=== PATIENT | male | born 1960 | race Caucasian/White ===

== ENCOUNTER 2018-09-10 11:40 | Inpatient (IN) ==
[2018-09-10] MEDS ORDERED: fentaNYL Citrate Inj 100 MCG/2 ML Ampul ONE (11:52)
[2018-09-10 12:13] LABS: Baso # (Auto) 0.1 th/mm3 (0.0-0.2); Eos # (Auto) 0.1 th/mm3 (0.0-0.4); Eos % (Auto) 1.6 % (0.0-4.0); Hematocrit 40.4 % (39.0-51.0); Hemoglobin 14.3 gm/dL (13.0-17.0); Lymph # (Auto) 2.9 th/mm3 (1.0-4.8); Lymph % (Auto) 36.8 % (9.0-44.0); Mean Corpuscular HGB Conc 35.4 % (32.0-36.0); Mean Corpuscular Hemoglobin 30.1 pg (27.0-34.0); Mean Corpuscular Volume 85.1 fL (80.0-100.0); Mean Platelet Volume 7.4 fL (7.0-11.0); Mono # (Auto) 0.6 th/mm3 (0.0-0.9); Mono % (Auto) 8.3 % (0.0-8.0); Neut % (Auto) 52.3 % (16.0-70.0); Platelet Count 228 th/mm3 (150-450); Red Blood Count 4.75 mil/mm3 (4.50-5.90); Red Cell Distribution Width 13.8 % (11.6-17.2); White Blood Count 7.8 th/mm3 (4.0-11.0)
[2018-09-10 12:22] LABS: Activated Partial Thrombo Time 21.8 sec (23.4-31.7); Prothrombin Time 9.8 sec (9.8-11.6)
--- NOTE | 2018-09-10 12:22 | ED ---
HPI General Chief complaint: Trauma Alert Stated complaint: Trauma Alert Time Seen by Provider: 09/10/18 11:57 Source: patient, EMS and RN notes reviewed Mode of arrival: EMS History of Present Illness HPI narrative: Middle-aged male brought in by EMS following a fall at work. 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 He is unsure if he lost consciousness. He denies use of anticoagulants/ antiplatelets and thinks his last tetanus shot was within 5 years. He complains of nasal pain, neck and back pain, and left wrist pain. Related Data Home Medications Medication Instructions Recorded Confirmed No Known Home Medications 09/10/18 09/10/18 Previous Rx's Medication Instructions Recorded hydrocodone-acetaminophen 1 tab PO Q6HR PRN #12 tab 09/12/18 sennosides [Senna Lax] 17.2 mg PO Q12H PRN 5 Days tab 09/12/18 Allergies Allergy/AdvReac Type Severity Reaction Status Date / Time No Known Allergies Allergy Verified 09/10/18 12:42 Review of Systems ROS: all other systems reviewed are negative PMFSH History History Provided By: Patient Social History Social History Substance History: No History of Abuse Second Hand Smoke Exposure: No Smoking Status: Never smoker How Often Do You Have a Drink Containing Alcohol: Monthly or less Recent Travel in [facility] within the Last 8 Weeks: No Recent Out of Country Travel within the Last 8 Weeks: No Exam Const Other: Brought in on backboard with cervical collar in place [facility] Other: Tenderness to nasal bridge, small amount of epistaxis from right nare, no raccoon eyes or Lao's sign, no intraoral trauma Eyes General: appearance normal, both eyes and all related structures Pupils: PERRL Neck Other: (+) midline cervical spinal tenderness, cervical collar maintained due to mechanism Chest Chest: normal inspection of the chest Resp Effort & Inspection: normal respiratory effort Auscultation: no rhonchi and no wheezes Cardio Rate: regular rate Rhythm: regular rhythm GI Inspection: non-distended Palpation: soft and nontender Back/Spine/Pelvis Other: Mild midline mid-thoracic tenderness, no step-off Pelvis stable, leg lengths equal Skin General: no rashes or lesions noted Neuro General: alert, awake, oriented x3 and no focal motor deficits Other: GCS 15 Extrem Other: Angulated deformity of left wrist, strong radial pulse, capillary refill <3 seconds to all digits, sensation intact Course Consultations Consultation #1: Case discussed with Dr. Hairston (ortho), who would like post- reduction x-rays of his left wrist. If it is still significantly displaced, he will likely need surgery while in the hospital. If adequately reduced, can potentially follow up as outpatient but may still ultimately need surgical intervention. Time: 14:11 Initial Documented Vital Signs Pulse Oximetry 100 09/10/18 11:54 Last Documented Vital Signs Temperature 98.3 F 09/12/18 08:00 Pulse Rate 62 09/12/18 08:00 Respiratory Rate 16 09/12/18 08:00 Blood Pressure 133/76 09/12/18 08:00 Pulse Oximetry 96 09/12/18 08:00 Medical Decision Making MDM Narrative Medical decision making narrative: Assessment: Middle aged male presenting after a fall Plan: Trauma alert level 2 paged on arrival X-ray chest, pelvis, left wrist [place]-CT scan Pain control Left wrist splinted by cnc technician in trauma bay Addendum: Patient's cervical collar cleared by me after negative imaging, no focal deficits. His CT facial bones was read as possible jaw subluxation but he is able to hold a tongue depressor between his teeth on both sides with no malocclusion or weakness. He has continued pain from left wrist s/p reduction. Slight improvement in displacement noted on post-reduction x-rays but radius is still fairly impacted. Case discussed with Dr. Hairston of ortho, who would like the patient kept NPO after midnight for OR in AM. Patient understands and agrees with plan. Medical Screen Exam Complete: Yes Emergency Medical Condition: Yes Differential Diagnosis Differential Diagnosis: Differential diagnosis includes, but is not limited to: ICH, skull fracture, C spine injury, intra-torso trauma, wrist fracture Lab Data Result diagrams: 09/11/18 04:47 09/11/18 04:47 Lab Results 09/10/18 09/10/18 09/10/18 Range/Units 11:45 11:45 11:45 WBC 7.8 (4.0-11.0) th/mm3 RBC 4.75 (4.50-5.90) mil/mm3 Hgb 14.3 (13.0-17.0) gm/dL POC Hgb (Calc) 13.6 (13.0-17.0) g/dL Hct 40.4 (39.0-51.0) % POC Hct 40.0 (39-51.0) % MCV 85.1 (80.0-100.0) fL MCH 30.1 (27.0-34.0) pg MCHC 35.4 (32.0-36.0) % RDW 13.8 (11.6-17.2) % Plt Count 228 (150-450) th/mm3 MPV 7.4 (7.0-11.0) fL Neut % (Auto) 52.3 (16.0-70.0) % Lymph % (Auto) 36.8 (9.0-44.0) % [place] % (Auto) 8.3 H (0.0-8.0) % Eos % (Auto) 1.6 (0.0-4.0) % Baso % (Auto) 1.0 (0.0-2.0) % Neut # (Auto) 4.0 (1.8-7.7) th/mm3 Lymph # (Auto) 2.9 (1.0-4.8) th/mm3 [place] # (Auto) 0.6 (0.0-0.9) th/mm3 Eos # (Auto) 0.1 (0.0-0.4) th/mm3 Baso # (Auto) 0.1 (0.0-0.2) th/mm3 WBC Differential . Differential Comment Auto diff final PT 9.8 (9.8-11.6) sec INR 1.0 Ratio APTT 21.8 L (23.4-31.7) sec POC Sodium 142 (137-144) mmol/L Sodium (136-145) meq/L POC Potassium 3.0 L (3.6-5.0) mmol/L Potassium (3.5-5.1) meq/L POC Chloride 106 (102-111) mmol/L Chloride (98-107) meq/L Carbon Dioxide (21.0-32.0) meq/L Anion Gap (5-15) meq/L POC BUN 10 (5-21) mg/dL BUN (7-18) mg/dL Creatinine (0.60-1.30) mg/dL POC Creatinine 0.8 (0.6-1.3) mg/dL Estimated GFR (>89) mL/min POC Glucose 121 H (68-110) mg/dL Random Glucose (74-106) mg/dL Calcium (8.5-10.1) mg/dL Urine Opiates Screen (Neg) Ur Barbiturates Screen (Neg) Ur Amphetamines Screen (Neg) U Benzodiazepines Scrn (Neg) Urine Cocaine Screen (Neg) U Cannabinoids Screen (Neg) Serum Alcohol (0-5) mg/dL Blood Type Antibody Screen 09/10/18 09/10/18 09/11/18 Range/Units 11:45 11:45 00:20 WBC (4.0-11.0) th/mm3 RBC (4.50-5.90) mil/mm3 Hgb (13.0-17.0) gm/dL POC Hgb (Calc) (13.0-17.0) g/dL Hct (39.0-51.0) % POC Hct (39-51.0) % MCV (80.0-100.0) fL MCH (27.0-34.0) pg MCHC (32.0-36.0) % RDW (11.6-17.2) % Plt Count (150-450) th/mm3 MPV (7.0-11.0) fL Neut % (Auto) (16.0-70.0) % Lymph % (Auto) (9.0-44.0) % [place] % (Auto) (0.0-8.0) % Eos % (Auto) (0.0-4.0) % Baso % (Auto) (0.0-2.0) % Neut # (Auto) (1.8-7.7) th/mm3 Lymph # (Auto) (1.0-4.8) th/mm3 [place] # (Auto) (0.0-0.9) th/mm3 Eos # (Auto) (0.0-0.4) th/mm3 Baso # (Auto) (0.0-0.2) th/mm3 WBC Differential Differential Comment PT (9.8-11.6) sec INR Ratio APTT (23.4-31.7) sec POC Sodium (137-144) mmol/L Sodium (136-145) meq/L POC Potassium (3.6-5.0) mmol/L Potassium (3.5-5.1) meq/L POC Chloride (102-111) mmol/L Chloride (98-107) meq/L Carbon Dioxide (21.0-32.0) meq/L Anion Gap (5-15) meq/L POC BUN (5-21) mg/dL BUN (7-18) mg/dL Creatinine (0.60-1.30) mg/dL POC Creatinine (0.6-1.3) mg/dL Estimated GFR (>89) mL/min POC Glucose (68-110) mg/dL Random Glucose (74-106) mg/dL Calcium (8.5-10.1) mg/dL Urine Opiates Screen Pos H (Neg) Ur Barbiturates Screen Neg (Neg) Ur Amphetamines Screen Neg (Neg) U Benzodiazepines Scrn Neg (Neg) Urine Cocaine Screen Neg (Neg) U Cannabinoids Screen Neg (Neg) Serum Alcohol Less than 3 (0-5) mg/dL Blood Type A Positive Antibody Screen Negative 09/11/18 09/11/18 09/11/18 Range/Units 04:47 04:47 04:47 WBC 8.7 (4.0-11.0) th/mm3 RBC 4.59 (4.50-5.90) mil/mm3 Hgb 13.7 (13.0-17.0) gm/dL POC Hgb (Calc) (13.0-17.0) g/dL Hct 39.0 (39.0-51.0) % POC Hct (39-51.0) % MCV 85.0 (80.0-100.0) fL MCH 29.8 (27.0-34.0) pg MCHC 35.1 (32.0-36.0) % RDW 13.7 (11.6-17.2) % Plt Count 211 (150-450) th/mm3 MPV 7.4 (7.0-11.0) fL Neut % (Auto) 69.2 (16.0-70.0) % Lymph % (Auto) 19.2 (9.0-44.0) % [place] % (Auto) 8.7 H (0.0-8.0) % Eos % (Auto) 2.2 (0.0-4.0) % Baso % (Auto) 0.7 (0.0-2.0) % Neut # (Auto) 6.0 (1.8-7.7) th/mm3 Lymph # (Auto) 1.7 (1.0-4.8) th/mm3 [place] # (Auto) 0.8 (0.0-0.9) th/mm3 Eos # (Auto) 0.2 (0.0-0.4) th/mm3 Baso # (Auto) 0.1 (0.0-0.2) th/mm3 WBC Differential . Differential Comment Auto diff final PT 10.0 (9.8-11.6) sec INR 1.0 Ratio APTT (23.4-31.7) sec POC Sodium (137-144) mmol/L Sodium 140 (136-145) meq/L POC Potassium (3.6-5.0) mmol/L Potassium 3.8 (3.5-5.1) meq/L POC Chloride (102-111) mmol/L Chloride 107 (98-107) meq/L Carbon Dioxide 25.4 (21.0-32.0) meq/L Anion Gap 8 (5-15) meq/L POC BUN (5-21) mg/dL BUN 10 (7-18) mg/dL Creatinine 0.79 (0.60-1.30) mg/dL POC Creatinine (0.6-1.3) mg/dL Estimated GFR 84 L (>89) mL/min POC Glucose (68-110) mg/dL Random Glucose 94 (74-106) mg/dL Calcium 8.3 L (8.5-10.1) mg/dL Urine Opiates Screen (Neg) Ur Barbiturates Screen (Neg) Ur Amphetamines Screen (Neg) U Benzodiazepines Scrn (Neg) Urine Cocaine Screen (Neg) U Cannabinoids Screen (Neg) Serum Alcohol (0-5) mg/dL Blood Type Antibody Screen Imaging Data Radiologist's impression: Wrist X-Ray 09/10/18 00:00 CONCLUSION: Comminuted distal radial fracture with dorsal dislocation of the carpus. Chest X-Ray 09/10/18 11:42 CONCLUSION: Artifact from backboard otherwise negative Pelvis X-Ray 09/10/18 11:42 CONCLUSION: The bony pelvic ring is grossly intact. Abdomen/Pelvis CT 09/10/18 11:50 CONCLUSION: 1. No acute traumatic CT abnormality in the abdomen or pelvis. 2. Mildly decreased hepatic attenuation likely reflecting mild hepatic steatosis. 3. Small fat-containing left inguinal hernia. Cervical Spine CT 09/10/18 11:50 CONCLUSION: 1. Negative for fracture Chest CT 09/10/18 11:50 CONCLUSION: 1. Mild groundglass opacities in the lower lobes posteriorly likely reflecting atelectasis. 2. Otherwise, no CT evidence for acute traumatic injury in the chest. Face CT 09/10/18 11:50 CONCLUSION: 1. Mandible appears to be subluxed anteriorly the mouth partially open. I don' t see a fracture to account for this. Clinical correlation suggested. Head CT 09/10/18 11:50 CONCLUSION: 1. Negative for acute process Lumbar Spine CT 09/10/18 11:50 CONCLUSION: 1. Negative for acute compression fracture. MRI would be more sensitive for such. 2. Degenerative disc disease worse at L4-5 without significant spinal stenosis. Thoracic Spine CT 09/10/18 11:50 CONCLUSION: 1. Negative for acute compression fracture, MRI be more sensitive for such. 2. No significant spinal stenosis. Wrist X-Ray 09/10/18 14:10 CONCLUSION: 1. Comminuted, impaction type fracture of the distal radial metaphysis with probable intra-articular extension. 2. There may be partial reduction of the fracture but there is still some dorsal angulation of the main fracture fragments. Wrist X-Ray 09/11/18 00:00 CONCLUSION: Intraoperative images. Chest X-Ray 09/12/18 00:00 CONCLUSION: Under aerated otherwise negative. I do not see a source of fever. Discharge Plan Discharge Disposition Patient Disposition: ED Admit(ED Internal Use Only) Discharge Condition Condition: Good Discharge Order Discharge Orders: Discharge Order (Routine); Ordered 09/12/18 Ordered By: Zunilda Bravo Orthopedic Clear for Discharge (Routine); Ordered 09/11/18 Ordered By: Vikki Hairston ED Use Only Admit Order (Routine); Ordered 09/10/18 Ordered By: Anita Zhang Discharge Details Anticipated Discharge Date: 09/12/18 Diagnosis: Fall from scaffold, Distal radius fracture, left Physicians Team ED Provider: Yamilet Beck Primary Care Provider: Primary Care Physici,No Attending Provider: Ofelia Rees Other Providers: Vikki Hairston Status ED Status: Left Department Discharge Information Discharge Date/Time: 09/10/18 17:30
--- NOTE | 2018-09-10 12:27 | CT ---
EXAM DATE: 09/10/2018 12:12 PM EST AGE/SEX: 89 years / Male INDICATIONS: Trauma fall from ladder. CLINICAL DATA: This is the patient's initial encounter. Patient reports that signs and symptoms have been present for 1 day and indicates a pain score of 6/10. MEDICAL/SURGICAL HISTORY: None. None. RADIATION DOSE: 56.70 CTDI (mGy) COMPARISON: No prior exams available for comparison. TECHNIQUE: CT of the head without contrast. Using automated exposure control and adjustment of the mA and/or kV according to patient size, radiation dose was kept as low as reasonably achievable to ob tain optimal diagnostic quality images. DICOM format image data is available electronically for revi ew and comparison. FINDINGS: Cerebrum: The ventricles are normal for age. No evidence of midline shift, mass lesion, hemorrhage or acute infarction. No extraaxial fluid collections are seen. Posterior Fossa: The cerebellum and brainstem are intact. The 4th ventricle is midline. The cerebe llopontine angle is unremarkable. Extracranial: The visualized portion of the orbits is intact. Skull: The calvaria is intact. No evidence of skull fracture. Moderate chronic sinus disease CONCLUSION: 1. Negative for acute process Electronically signed by: Jani Toney MD Board Certified Radiologist 09/10/2018 12:26 PM EST
--- NOTE | 2018-09-10 12:49 | XR ---
EXAM DATE: 09/10/2018 12:04 PM EST AGE/SEX: 89 years / Male INDICATIONS: Trauma alert, fall. Pain in chest, pelvis and left hip. CLINICAL DATA: This is the patient's initial encounter. Patient reports that signs and symptoms have been present for 1 day and indicates a pain score of Nonresponsive. MEDICAL/SURGICAL HISTORY: Non-responsive. Non-responsive. COMPARISON: No prior exams available for comparison. FINDINGS: Artifact from backboard. A single AP view of the chest demonstrates the lungs to be symmetrically aer ated without evidence of mass, infiltrate or effusion. The cardiomediastinal contours are unremarkab le. Osseous structures are intact. CONCLUSION: Artifact from backboard otherwise negative Electronically signed by: Jani Toney MD Board Certified Radiologist 09/10/2018 12:48 PM EST
--- NOTE | 2018-09-10 12:49 | CT ---
EXAM DATE: 09/10/2018 12:26 PM EST AGE/SEX: 89 years / Male INDICATIONS: Trauma fell from a ladder CLINICAL DATA: This is the patient's initial encounter. Patient reports that signs and symptoms have been present for 1 day and indicates a pain score of 6/10. MEDICAL/SURGICAL HISTORY: None. None. RADIATION DOSE: 21.30 CTDI (mGy) COMPARISON: No prior exams available for comparison. TECHNIQUE: Contiguous axial images were obtained using helical multirow detector technique. The vol umetric data was post-processed with multiplanar reconstruction in oblique axial, sagittal, and coron al planes. Using automated exposure control and adjustment of the mA and/or kV according to patient s ize, radiation dose was kept as low as reasonably achievable to obtain optimal diagnostic quality phillip ges. DICOM format image data is available electronically for review and comparison. FINDINGS: Vertebrae: Normal vertebral body height. Anterior osteophytosis is seen at C3-C4 Alignment: Normal. No subluxation. C2-3: The bony spinal canal is normal in size. No evidence of disc bulge or herniation. The neural foramina are bilaterally patent. C3-4: The bony spinal canal is normal in size. No evidence of disc bulge or herniation. The neural foramina are bilaterally patent. C4-5: The bony spinal canal is normal in size. No evidence of disc bulge or herniation. The neural foramina are bilaterally patent. C5-6: The bony spinal canal is normal in size. No evidence of disc bulge or herniation. The neural foramina are bilaterally patent. C6-7: The bony spinal canal is normal in size. No evidence of disc bulge or herniation. The neural foramina are bilaterally patent. C7-T1: The bony spinal canal is normal in size. No evidence of disc bulge or herniation. The neura l foramina are bilaterally patent. CONCLUSION: 1. Negative for fracture Electronically signed by: Jani Toney MD Board Certified Radiologist 09/10/2018 12:47 PM EST
--- NOTE | 2018-09-10 13:06 | CT ---
EXAM DATE: 09/10/2018 12:36 PM EST AGE/SEX: 89 years / Male INDICATIONS: Trauma fall from a ladder. CLINICAL DATA: This is the patient's initial encounter. Patient reports that signs and symptoms have been present for 1 day and indicates a pain score of 6/10. MEDICAL/SURGICAL HISTORY: None. None. RADIATION DOSE: 64.19 CTDI (mGy) COMPARISON: No prior exams available for comparison. TECHNIQUE: Contiguous images in the axial and coronal planes were obtained using helical multirow de tector technique. Using automated exposure control and adjustment of the mA and/or kV according to p atient size, radiation dose was kept as low as reasonably achievable to obtain optimal diagnostic antionette lity images. DICOM format image data is available electronically for review and comparison. FINDINGS: The mandible appears to be subluxed anteriorly with the mouth partially open. I don't see a fracture to account for this. Orbits: The orbital and infraorbital osseous structures are intact. The retroconal structures have a normal configuration. No radiopaque foreign bodies are seen. Nasal Bone: The nasal bone and maxillary spine are intact. Zygomatic Arches: Symmetric without evidence of fracture. Sinuses: Moderate chronic sinus disease including sphenoid. Nasal Cavity: The nasal septum is intact and midline. The lacrimal ducts are intact. Soft Tissues: No radiopaque foreign bodies seen. No soft-tissue swelling is seen. Intracranial: No intracranial air seen. Cribriform Plate: Grossly intact. CONCLUSION: 1. Mandible appears to be subluxed anteriorly the mouth partially open. I don't see a fracture to ac count for this. Clinical correlation suggested. Electronically signed by: Jani Toney MD Board Certified Radiologist 09/10/2018 1:05 PM EST
--- NOTE | 2018-09-10 13:10 | CT ---
EXAM DATE: 09/10/2018 12:40 PM EST AGE/SEX: 89 years / Male INDICATIONS: Trauma fall from a ladder. CLINICAL DATA: This is the patient's initial encounter. Patient reports that signs and symptoms have been present for 1 day and indicates a pain score of 6/10. MEDICAL/SURGICAL HISTORY: None. None. RADIATION DOSE: . CTDI (mGy) ; Combined studies COMPARISON: . TECHNIQUE: Contiguous axial images were acquired with a multirow detector CT scanner after intraveno us administration of 92 ml Omnipaque 350 (iohexol) nonionic water-soluble contrast as a cumulative d ose for multiple exams. Multiplanar reconstructions in the sagittal and coronal plane were also perf ormed. Using automated exposure control and adjustment of the mA and/or kV according to patient size, radiation dose was kept as low as reasonably achievable to obtain optimal diagnostic quality images. DICOM format image data is available electronically for review and comparison. FINDINGS: Vertebrae: Normal vertebral body height. Alignment: Normal. No subluxation. Post Contrast: No abnormal areas of enhancement are seen in the cord, dural or paraspinal regions. T12-L1: The thecal sac has a normal diameter. No evidence of disc bulge or protrusion. The neural foramina are patent bilaterally. L1-L2: Mild disc bulging evident. Minimal degenerative changes in the facets. Mild neural foraminal encroachment. L2-L3: Mild generalized disc bulging present with minimal bilateral neural foraminal encroachment wo rse on the right. Mild degenerative changes in the facets. Mild disc bulging evident without signific ant spinal stenosis. Neural foramen are adequate. Mild facet degenerative changes. L3-L4: Mild disc bulging evident without significant spinal stenosis. Neural foramen are adequate. M ild facet degenerative changes L4-L5: Mild disc bulging evident eccentric to the left with minimal bilateral neural foraminal encro achment. Mild degenerative changes in the facets. L5-S1: Mild disc bulging evident without significant spinal stenosis. Neural foramen are adequate. Mild degenerative changes in both SI joints. CONCLUSION: 1. Negative for acute compression fracture. MRI would be more sensitive for such. 2. Degenerative disc disease worse at L4-5 without significant spinal stenosis. Electronically signed by: Jani Toney MD Board Certified Radiologist 09/10/2018 1:09 PM EST
--- NOTE | 2018-09-10 13:12 | CT ---
EXAM DATE: 09/10/2018 1:01 PM EST AGE/SEX: 89 years / Male INDICATIONS: Trauma fall from a ladder. CLINICAL DATA: This is the patient's initial encounter. Patient reports that signs and symptoms have been present for 1 day and indicates a pain score of 6/10. MEDICAL/SURGICAL HISTORY: None. None. RADIATION DOSE: . CTDI (mGy) ; Reconstructed from previous dataset, no dose COMPARISON: [facility] – [place], [place] CERVICAL SPINE W/O CONTRAST, 09/10/2018. . TECHNIQUE: Contiguous axial images were acquired using a multirow detector CT scanner after intraven ous administration of 92 ml Omnipaque 350 (iohexol) nonionic water-soluble contrast as a cumulative dose for multiple exams. Multiplanar reconstruction in the sagittal and coronal planes was performe d. Using automated exposure control and adjustment of the mA and/or kV according to patient size, ra diation dose was kept as low as reasonably achievable to obtain optimal diagnostic quality images. D ICOM format image data is available electronically for review and comparison. FINDINGS: Vertebrae: Normal vertebral body height. There is no evidence for vertebral compression. Moderate an d calcified ptosis mid thoracic spine. Alignment: Normal. No subluxation. Post Contrast: No abnormal areas of enhancement are seen in the cord, dural or paraspinal regions. T1 - T2: Normal. T2 - T3: The thecal sac has a normal diameter. No evidence of disc bulge or protrusion. T3 - T4: The thecal sac has a normal diameter. No evidence of disc bulge or protrusion. T4 - T5: The thecal sac has a normal diameter. No evidence of disc bulge or protrusion. T5 - T6: The thecal sac has a normal diameter. No evidence of disc bulge or protrusion. T6 - T7: The thecal sac has a normal diameter. No evidence of disc bulge or protrusion. T7 - T8: The thecal sac has a normal diameter. No evidence of disc bulge or protrusion. T8 - T9: The thecal sac has a normal diameter. No evidence of disc bulge or protrusion. T9 - T10: The thecal sac has a normal diameter. No evidence of disc bulge or protrusion. T10 - T11: The thecal sac has a normal diameter. No evidence of disc bulge or protrusion. T11 - T12: The thecal sac has a normal diameter. No evidence of disc bulge or protrusion. T12 - L1: The thecal sac has a normal diameter. No evidence of disc bulge or protrusion. CONCLUSION: 1. Negative for acute compression fracture, MRI be more sensitive for such. 2. No significant spinal stenosis. Electronically signed by: Jani Toney MD Board Certified Radiologist 09/10/2018 1:11 PM EST
--- NOTE | 2018-09-10 13:23 | XR ---
EXAM DATE: 09/10/2018 12:06 PM EST AGE/SEX: 89 years / Male INDICATIONS: Trauma alert, fall. Pain in chest, pelvis and left wrist. CLINICAL DATA: This is the patient's initial encounter. Patient reports that signs and symptoms have been present for 1 day and indicates a pain score of Nonresponsive. MEDICAL/SURGICAL HISTORY: . . COMPARISON: No prior exams available for comparison. FINDINGS: Frontal view of the pelvis is performed on a trauma backboard. The bony pelvic ring is grossly intact . The arcuate lines of the sacrum or symmetric. The left hip is in external rotation with superimposi tion of the intertrochanteric region and femoral neck. No radiopaque foreign bodies. CONCLUSION: The bony pelvic ring is grossly intact. Electronically signed by: Gabo Machuca MD Board Certified Radiologist 09/10/2018 1:22 PM EST
--- NOTE | 2018-09-10 13:34 | XR ---
EXAM DATE: 09/10/2018 12:09 PM EST AGE/SEX: 89 years / Male INDICATIONS: Trauma alert, fall. Pain in chest, pelvis, and left wrist. CLINICAL DATA: This is the patient's initial encounter. Patient reports that signs and symptoms have been present for 1 day and indicates a pain score of Nonresponsive. MEDICAL/SURGICAL HISTORY: None. None. COMPARISON: No prior exams available for comparison. FINDINGS: There is a moderately comminuted fracture of the distal radius with posterior displacement and angula tion of the carpus with respect to the shaft of the radius. The distal ulna appears intact. There are several displaced bony fragments posterior and medial to the distal radius. The carpus appears gross ly intact. There is diffuse mild soft tissue swelling; no radiopaque foreign bodies. CONCLUSION: Comminuted distal radial fracture with dorsal dislocation of the carpus. Electronically signed by: Gabo Machuca MD Board Certified Radiologist 09/10/2018 1:33 PM EST
--- NOTE | 2018-09-10 13:56 | CT ---
EXAM DATE: 09/10/2018 12:34 PM EST AGE/SEX: 89 years / Male INDICATIONS: Trauma fall from a ladder. CLINICAL DATA: This is the patient's initial encounter. Patient reports that signs and symptoms have been present for 1 day and indicates a pain score of 6/10. MEDICAL/SURGICAL HISTORY: None. None. RADIATION DOSE: 14.43 CTDI (mGy) ; Combined studies COMPARISON: [facility], CHEST 1V SINGLE AP, 09/10/2018. . TECHNIQUE: Multiple contiguous axial images were obtained through the chest during bolus infusion of 92 ml Omnipaque 350 (iohexol) nonionic water-soluble contrast as a cumulative dose for multiple exa ms. Images were obtained in suspended respiration using multiple row detector helical technique. U sing automated exposure control and adjustment of the mA and/or kV according to patient size, radiati on dose was kept as low as reasonably achievable to obtain optimal diagnostic quality images. DICOM format image data is available electronically for review and comparison. FINDINGS: Lung: Mild groundglass opacities in the posterior lower lobes bilaterally. Pleura: No effusion, significant pleural thickening or pneumothorax. Mediastinum: Heart is unremarkable. No significant pericardial effusion. No significant mediastinal hematoma. Osseous Structures: Osseous structures are intact without acute bony fracture. Soft Tissues: Soft tissues are unremarkable. No significant axillary adenopathy. Other: Visulaized upper abdomen is unremarkable. CONCLUSION: 1. Mild groundglass opacities in the lower lobes posteriorly likely reflecting atelectasis. 2. Otherwise, no CT evidence for acute traumatic injury in the chest. Electronically signed by: Alessio Pennington MD Board Certified Radiologist 09/10/2018 1:55 PM EST
--- NOTE | 2018-09-10 13:59 | CT ---
EXAM DATE: 09/10/2018 12:31 PM EST AGE/SEX: 89 years / Male INDICATIONS: Trauma fell from a ladder. CLINICAL DATA: This is the patient's initial encounter. Patient reports that signs and symptoms have been present for 1 day and indicates a pain score of 6/10. MEDICAL/SURGICAL HISTORY: None. None. ORAL CONTRAST: No oral contrast ingested. RADIATION DOSE: 14.43 CTDI (mGy) ; Combined studies COMPARISON: [facility], PELVIS AP 1V, 09/10/2018. . TECHNIQUE: Multiple contiguous axial images were obtained through the abdomen and pelvis following b olus infusion of 92 ml Omnipaque 350 (iohexol) nonionic water-soluble contrast as a cumulative dose for multiple exams. No oral contrast ingested. Using automated exposure control and adjustment of t he mA and/or kV according to patient size, radiation dose was kept as low as reasonably achievable to obtain optimal diagnostic quality images. DICOM format image data is available electronically for r eview and comparison. FINDINGS: LIVER: Mild diffusely decreased hepatic attenuation without focal defect or intrahepatic ductal dila tation. SPLEEN: Homogeneous density without enlargement. PANCREAS: Unremarkable without mass or calcification. KIDNEYS: Kidneys demonstrate symmetrical enhancement and are symmetrical in size without evidence fo r radiopaque renal calculi or hydronephrosis. ADRENAL GLANDS: Unremarkable. AORTA: Aydee-aneurysmal. BOWEL/MESENTERY: The bowel loops are grossly unremarkable. The cecum and sigmoid colon have a alejandro l configuration. No pneumatosis or free air. No free fluid or drainable fluid collections. ABDOMINAL WALL: Small fat-containing left inguinal hernia. RETROPERITONEUM: No evidence of adenopathy in the retrocrural, para-aortic, or deep pelvic regions. BLADDER: Contours are smooth. REPRODUCTIVE: No abnormal masses or calcifications seen. BONY STRUCTURES: Osseous structures appear intact without acute fracture. Mild degenerative spondylo sis of the lower lumbar spine. CONCLUSION: 1. No acute traumatic CT abnormality in the abdomen or pelvis. 2. Mildly decreased hepatic attenuation likely reflecting mild hepatic steatosis. 3. Small fat-containing left inguinal hernia. Electronically signed by: Alessio Pennington MD Board Certified Radiologist 09/10/2018 1:57 PM EST
[2018-09-10] MEDS ORDERED: Morphine Inj 4 MG/ML Vial IV.PUSH ONE (14:55)
--- NOTE | 2018-09-10 15:28 | XR ---
EXAM DATE: 09/10/2018 2:53 PM EST AGE/SEX: 89 years / Male INDICATIONS: Post reduction. Patient fell from ladder. CLINICAL DATA: This is the patient's subsequent encounter. Patient reports that signs and symptoms h ave been present for 1 day and indicates a pain score of 10/10. MEDICAL/SURGICAL HISTORY: None. None. COMPARISON: [facility] [place], WRIST LEFT 1V, 09/10/2018. . FINDINGS: There appears to be a comminuted impaction type fracture of the distal radial metaphysis with some do rsal angulation of the distal fragment. There is almost certainly intra-articular extension. There is partial reduction of the fracture when compared to the prior. Anatomic detail is limited by overlyin g splint material CONCLUSION: 1. Comminuted, impaction type fracture of the distal radial metaphysis with probable intra-articular extension. 2. There may be partial reduction of the fracture but there is still some dorsal angulation of the m ain fracture fragments. Electronically signed by: Gerald Obrien MD Board Certified Radiologist 09/10/2018 3:27 PM EST
--- NOTE | 2018-09-10 16:25 | P.HPFP ---
History of Present Illness Primary Care Physician: No Primary Care Physician History of Present Illness: This patient is a 58-year-old Pakistani-speaking male who presented to the ED as a trauma after a witnessed fall. 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 Patient reports falling directly onto his left arm. At the time patient felt excruciating pain. He denies any lightheadedness , dizziness, shaking-like behavior, chest pain or shortness of breath prior to falling. Patient denies any loss of consciousness or hitting his head after falling. 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 Patient reports that he has had one prior fall over 10 years ago that resulted no injury. Since getting to the ED patient reports increased numbness and lack of sensation in the arm. He also reports a decreased movement and ability to close his hand. Of note: Had a dental implant infected 2 weeks and was prescribed oral amox and finished his course. 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 FMHx: None Allergies: None Social: Originally from [place], lives with his of 25 years. Has 3 children ages 24 ,20, and 16 all in good health. 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 Smoked cigarettes for a month and quit in 1973. Drinks 3 drinks only on weekends and not everyone weekend. No drugs. Code: Full PCP: Has in [place] but does not remember name. - Diagnosis (1) Distal radius fracture, left (2) Fall from scaffold (3) Hypokalemia (4) Nutrition, metabolism, and development symptoms Inpatient Certification: I certify that the inpatient services were ordered in accordance with Medicare regulations governing the order. This includes certification that hospital inpatient services are reasonable and necessary and in the case of services not specified as inpatient-only under 42 CFR 419.22(n), that they are appropriately provided as inpatient services in accordance to with the 2-midnight benchmark under 43 CFR 412.3(e) Review of Systems Constitutional: Denies chills, Denies fever(s), Denies headache(s), Denies dizziness, Eyes: Denies change in vision, Denies double vision, Denies blurry vision Cardiovascular: Denies chest pain, Denies fast heart rate, Denies rapid, pounding, or irregular heartbeat Respiratory: Denies shortness of breath or wheezing Gastrointestinal: Denies abdominal pain, Denies constipation, Denies loose stools, Denies nausea, Denies vomiting Genitourinary: Denies difficulty urinating, Denies painful urination, Denies urinary frequency, Denies blood in urine PMFSH - History History Provided By: Patient - Medical History Medical History: Medical History (Last Updated 09/10/18 @ 12:30 by Eloisa Mtz RN) Seizure disorder - Tobacco History Second Hand Smoke Exposure: No Smoking Status: Never smoker - Alcohol History How Often Do You Have a Drink Containing Alcohol: Monthly or less - Substance Use History Substance History: No History of Abuse - Travel History Recent Travel in the [place] Within the Last 8 Weeks: No Recent Travel Out of the Country Within the Last 8 Weeks: No - Immunization History Tetanus Immunization: Unsure Medications and Allergies Allergies Allergy/AdvReac Type Severity Reaction Status Date / Time No Known Allergies Allergy Verified 09/10/18 12:42 Home Medications Medication Instructions Recorded Confirmed Type No Known Home Medications 09/10/18 09/10/18 History Exam Vital signs: Vital Signs 09/10/18 11:54 09/10/18 12:25 09/10/18 14:13 Pulse Rate 62 60 Respiratory Rate 20 20 Blood Pressure 201/96 H 185/87 H Pulse Oximetry 100 99 97 09/10/18 16:02 Pulse Rate 60 Respiratory Rate 18 Blood Pressure 196/94 H Pulse Oximetry 97 Intake & Output 09/09/18 09/10/18 09/10/18 18:59 06:59 18:59 Weight 70.307 kg Narrative: GENERAL: Well-nourished, well-developed patient with dried blood on face. No acute distress. EYES: No scleral icterus. No injection or drainage. PERRLA. EOMI. HENT: Normocephalic. Atraumatic. MMM. OP Benign. External abrasions on right and left cheek as well as over her philtrum. Patient has approximately 2 cm linear laceration on the inside of his top lip. No obvious external lacerations or facial swelling. NECK: Supple, trachea midline. No JVD or lymphadenopathy. CARDIOVASCULAR: Regular rate and rhythm without obvious murmurs, gallops, or rubs. RESPIRATORY: Breath sounds equal bilaterally. No accessory muscle use. CTAB. GASTROINTESTINAL: Abdomen soft, non-tender, nondistended. BS WNL. MUSCULOSKELETAL: Patient has left arm in bandage, fingers well perfused and warm to the touch. Capillary refill less than 2 seconds. No cyanosis or edema. Strength grossly WNL. BACK: Nontender without obvious deformity. No CVA tenderness. NEURO/PSYCH: Afocal. Awake, alert, and oriented x3. Patient has decreased sensation over left hand. Stating that he cannot feel when the I was examining his hand. Blasting Miner strength 0/5 in left hand. Patient able to abduct shoulder past 90 degrees. Results - Labs Result diagrams: 09/10/18 11:45 Abnormal lab results 09/10/18 09/10/18 09/10/18 Range/Units 11:45 11:45 11:45 [place] % (Auto) 8.3 H (0.0-8.0) % APTT 21.8 L (23.4-31.7) sec POC Potassium 3.0 L (3.6-5.0) mmol/L POC Glucose 121 H (68-110) mg/dL Short CBC 09/10/18 Range/Units 11:45 WBC 7.8 (4.0-11.0) th/mm3 Hgb 14.3 (13.0-17.0) gm/dL Hct 40.4 (39.0-51.0) % Plt Count 228 (150-450) th/mm3 - Imaging Impressions Wrist X-Ray 09/10/18 00:00 CONCLUSION: Comminuted distal radial fracture with dorsal dislocation of the carpus. Chest X-Ray 09/10/18 11:42 CONCLUSION: Artifact from backboard otherwise negative Pelvis X-Ray 09/10/18 11:42 CONCLUSION: The bony pelvic ring is grossly intact. Abdomen/Pelvis CT 09/10/18 11:50 CONCLUSION: 1. No acute traumatic CT abnormality in the abdomen or pelvis. 2. Mildly decreased hepatic attenuation likely reflecting mild hepatic steatosis. 3. Small fat-containing left inguinal hernia. Cervical Spine CT 09/10/18 11:50 CONCLUSION: 1. Negative for fracture Chest CT 09/10/18 11:50 CONCLUSION: 1. Mild groundglass opacities in the lower lobes posteriorly likely reflecting atelectasis. 2. Otherwise, no CT evidence for acute traumatic injury in the chest. Face CT 09/10/18 11:50 CONCLUSION: 1. Mandible appears to be subluxed anteriorly the mouth partially open. I don' t see a fracture to account for this. Clinical correlation suggested. Head CT 09/10/18 11:50 CONCLUSION: 1. Negative for acute process Lumbar Spine CT 09/10/18 11:50 CONCLUSION: 1. Negative for acute compression fracture. MRI would be more sensitive for such. 2. Degenerative disc disease worse at L4-5 without significant spinal stenosis. Thoracic Spine CT 09/10/18 11:50 CONCLUSION: 1. Negative for acute compression fracture, MRI be more sensitive for such. 2. No significant spinal stenosis. Wrist X-Ray 09/10/18 14:10 CONCLUSION: 1. Comminuted, impaction type fracture of the distal radial metaphysis with probable intra-articular extension. 2. There may be partial reduction of the fracture but there is still some dorsal angulation of the main fracture fragments. Caprini VTE Risk Assessment Caprini VTE Risk Assessment: Moderate/High Risk (score >= 2) Caprini Risk Assessment Model: Point Value = 1 Point Value = 2 Point Value = 3 Point Value = 5 Age 41-60 Minor surgery BMI > 25 kg/m2 Swollen legs Varicose veins or History of unexplained or recurrent spontaneous Oral contraceptives or hormone replacement Sepsis (< 1 month) Serious lung disease, including pneumonia (< 1 month) Abnormal pulmonary function Acute myocardial infarction Congestive heart failure (< 1 month) History of inflammatory bowel disease Medical patient at bed rest Age 61-74 Arthroscopic surgery Major open surgery (> 45 min) Laparoscopic surgery (> 45 min) Malignancy Confined to bed (> 72 hours) Immobilizing plaster cast Central venous access Age >= 75 History of VTE Family history of VTE Factor V Leiden Prothrombin [id number] Lupus anticoagulant Anticardiolipin antibodies Elevated serum homocysteine Heparin-induced thrombocytopenia Other congenital or acquired thrombophilia Stroke (< 1 month) Elective arthroplasty Hip, pelvis, or leg fracture Acute spinal cord injury (< 1 month) Prophylaxis Regimen: Total Risk Factor Score Risk Level Prophylaxis Regimen 0-1 Low Early ambulation 2 Moderate Order ONE of the following: *Sequential Compression Device (SCD) *Heparin 5000 units SQ BID 3-4 Higher Order ONE of the following medications: *Heparin 5000 units SQ TID *Enoxaparin/Lovenox 40 mg SQ daily (WT < 150 kg, CrCl > 30 mL/min) *Enoxaparin/Lovenox 30 mg SQ daily (WT < 150 kg, CrCl > 10-29 mL/min) *Enoxaparin/Lovenox 30 mg SQ BID (WT < 150 kg, CrCl > 30 mL/min) AND/OR *Sequential Compression Device (SCD) 5 or more Highest Order ONE of the following medications: *Heparin 5000 units SQ TID (Preferred with Epidurals) *Enoxaparin/Lovenox 40 mg SQ daily (WT < 150 kg, CrCl > 30 mL/min) *Enoxaparin/Lovenox 30 mg SQ daily (WT < 150 kg, CrCl > 10-29 mL/min) *Enoxaparin/Lovenox 30 mg SQ BID (WT < 150 kg, CrCl > 30 mL/min) AND *Sequential Compression Device (SCD) Assessment and Plan - Assessment (1) Distal radius fracture, left Code(s): S52.502A - Unspecified fracture of the lower end of left radius, initial encounter for closed fracture Status: Acute Plan: This patient is a 58-year-old Pakistani-speaking male who presented to the ED as a trauma after a witnessed fall. This patient fell approximately 9 feet off of the ladder. Landed on his outstretched left arm resulting in a committed left radial fracture. Patient will be taken to surgery tomorrow for open reduction and internal fixation of distal radius. Due to patient's decreased strength as well as decreased sensation left hand, there was a concern for possible compartment syndrome. I contacted the [employer] who bandaged the individual's arm, the tach unraveled the bandage and examined the arm with no signs of compartment syndrome. Imaging for trauma as stated below. -Chest x-ray: Otherwise negative -Pelvic x-ray pelvic ring grossly intact -Abdomen/pelvis CT no acute trauma in the abdomen or pelvis, mild hepatic steatosis. Small fat-containing left inguinal hernia. -Cervical spine CT negative for fracture -Chest CT mild groundglass opacities in the lower lobes posteriorly likely reflecting atelectasis, otherwise no CT evidence for acute traumatic injury to the chest -Face CT mandible appears to be subluxed anteriorly, the mouth partially open. No fracture to account for. -Head CT negative for acute process -Lumbar spine CT negative for acute compression fraction, degenerative disc at L4-L5 without significant spinal stenosis -Thoracic spine CT negative for spinal stenosis, negative for acute compression fracture -Wrist x-ray commuted impactions type fracture of the distal radial metaphysis with probable intra-articular extension. Partial reduction of the fracture was still some dorsal angulation of the fragments. Plan: -Patient to be taken to the OR tomorrow for open reduction and internal fixation -N.p.o. after midnight -Pain control as follows, [place] 5 pain scale 3-5, [place] 7.5 pain scale 67, morphine 2 mg IV push every 3 as needed for breakthrough -Monitor for signs of compartment syndrome (2) Fall from scaffold Code(s): W12.XXXA - Fall on and from scaffolding, initial encounter Status: Acute Plan: This fall was a witnessed fall, reported to be mechanical due to an unstable ladder. At this time no concern for intoxication, hypoglycemia, seizure-like activity, or CVA. -See plan above -Follow-up with blood alcohol level -Follow-up with UDS (3) Hypokalemia Code(s): E87.6 - Hypokalemia Status: Acute Plan: Patient with potassium of 3.0 on admission. Patient currently is symptomatic. -40 of potassium chloride p.o. ordered -EKG ordered -Follow-up with morning BMP (4) Nutrition, metabolism, and development symptoms Code(s): R63.8 - Other symptoms and signs concerning food and fluid intake Status: Acute Plan: Fluids: Not indicated at this time Electrolytes: Replete as needed Nutrition: Regular diet for now, n.p.o. after midnight DVT prophylaxis: SCD this patient will be going to surgery tomorrow morning
[2018-09-10] MEDS ORDERED: Ibuprofen 400 MG Tablet PO PRN (16:36)
[2018-09-10] MEDS ORDERED: Bisacodyl 10 MG Supp RECTAL PRN (16:36)
[2018-09-10] MEDS ORDERED: Naloxone Inj 0.4 MG/ML Vial IV.PUSH PRN (16:36)
[2018-09-10] MEDS ORDERED: Acetaminophen 325 MG Tablet PO PRN (16:36)
[2018-09-10] MEDS ORDERED: Potassium Chloride 10 MEQ ER Capsule PO ONE (18:06)
[2018-09-10] MEDS: Morphine Sulfate Inj 2 MG/ML Vial IV.PUSH PRN ×2 (18:08→21:49)
[2018-09-10] MEDS: Senna/Docusate Sodium 8.6/50 MG Tablet PO SCH (20:32)
[2018-09-11 00:48] LABS: Amphetamine Screen,Urine Neg (Neg); Barbiturate Screen,Urine Neg (Neg); Cannabinoid Screen,Urine Neg (Neg); Cocaine Screen,Urine Neg (Neg)
[2018-09-11] MEDS: Morphine Sulfate Inj 2 MG/ML Vial IV.PUSH PRN ×4 (01:02→12:32)
[2018-09-11 01:10] LABS: Opiate Screen,Urine Pos (Neg)
[2018-09-11] MEDS ORDERED: Sodium Chlor 0.9% Inj 500 ML IV.CONT ONE (05:00)
[2018-09-11] MEDS ORDERED: Chlorhexidine Gluconate 2% 1 Pack (2 Cloths) TOPICAL ONE (05:00)
[2018-09-11 06:47] LABS: Red Blood Count 4.59 mil/mm3 (4.50-5.90); White Blood Count 8.7 th/mm3 (4.0-11.0)
[2018-09-11 06:48] LABS: Baso # (Auto) 0.1 th/mm3 (0.0-0.2); Baso % (Auto) 0.7 % (0.0-2.0); Eos # (Auto) 0.2 th/mm3 (0.0-0.4); Eos % (Auto) 2.2 % (0.0-4.0); Hemoglobin 13.7 gm/dL (13.0-17.0); Lymph # (Auto) 1.7 th/mm3 (1.0-4.8); Lymph % (Auto) 19.2 % (9.0-44.0); Mean Corpuscular HGB Conc 35.1 % (32.0-36.0); Mean Corpuscular Hemoglobin 29.8 pg (27.0-34.0); Mean Platelet Volume 7.4 fL (7.0-11.0); Mono # (Auto) 0.8 th/mm3 (0.0-0.9); Mono % (Auto) 8.7 % (0.0-8.0); Neut % (Auto) 69.2 % (16.0-70.0); Platelet Count 211 th/mm3 (150-450); Red Cell Distribution Width 13.7 % (11.6-17.2)
[2018-09-11 07:05] LABS: Calcium 8.3 mg/dL (8.5-10.1); Carbon Dioxide 25.4 meq/L (21.0-32.0); Potassium 3.8 meq/L (3.5-5.1)
[2018-09-11] MEDS: Senna/Docusate Sodium 8.6/50 MG Tablet PO SCH ×2 (08:01→21:22)
--- NOTE | 2018-09-11 09:17 | P.PNFP ---
Subjective Interval history: This progress note is written in conjunction with resident H&P dated 09/10/2018. Vitaly Padilla is a 58yo Indian-speaking male originally admitted as Sean [id number] after a witnessed fall from a ladder, approx 8-9 feet high. 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 He landed on his left arm and also hit his face. He did not lose any consciousness. For further details, please see resident H&P. This morning, he is to undergo ORIF of left radial fracture by Dr Hairston. He reports numbness of his fingers and ability to only move his left index finger. He is having difficulty eating due to mouth pain. ROS: As above and per resident H&P. PMH/PSxH/SocHx/FamHx: Per resident H&P. Significant for polio as a child, with foot surgery as a result. 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 Drinks 3 drinks on the weekend. No recreational drug use. Results - Labs Result diagrams: 09/11/18 04:47 09/11/18 04:47 Abnormal lab results 09/10/18 09/10/18 09/10/18 Range/Units 11:45 11:45 11:45 [place] % (Auto) 8.3 H (0.0-8.0) % APTT 21.8 L (23.4-31.7) sec POC Potassium 3.0 L (3.6-5.0) mmol/L Estimated GFR (>89) mL/min POC Glucose 121 H (68-110) mg/dL Calcium (8.5-10.1) mg/dL Urine Opiates Screen (Neg) 09/11/18 09/11/18 09/11/18 Range/Units 00:20 04:47 04:47 [place] % (Auto) 8.7 H (0.0-8.0) % APTT (23.4-31.7) sec POC Potassium (3.6-5.0) mmol/L Estimated GFR 84 L (>89) mL/min POC Glucose (68-110) mg/dL Calcium 8.3 L (8.5-10.1) mg/dL Urine Opiates Screen Pos H (Neg) Short CBC 09/10/18 09/11/18 Range/Units 11:45 04:47 WBC 7.8 8.7 (4.0-11.0) th/mm3 Hgb 14.3 13.7 (13.0-17.0) gm/dL Hct 40.4 39.0 (39.0-51.0) % Plt Count 228 211 (150-450) th/mm3 BMP 09/11/18 04:47 Sodium 140 Potassium 3.8 Chloride 107 Carbon Dioxide 25.4 BUN 10 Creatinine 0.79 Calcium 8.3 L - Imaging Impressions Wrist X-Ray 09/10/18 00:00 CONCLUSION: Comminuted distal radial fracture with dorsal dislocation of the carpus. Chest X-Ray 09/10/18 11:42 CONCLUSION: Artifact from backboard otherwise negative Pelvis X-Ray 09/10/18 11:42 CONCLUSION: The bony pelvic ring is grossly intact. Abdomen/Pelvis CT 09/10/18 11:50 CONCLUSION: 1. No acute traumatic CT abnormality in the abdomen or pelvis. 2. Mildly decreased hepatic attenuation likely reflecting mild hepatic steatosis. 3. Small fat-containing left inguinal hernia. Cervical Spine CT 09/10/18 11:50 CONCLUSION: 1. Negative for fracture Chest CT 09/10/18 11:50 CONCLUSION: 1. Mild groundglass opacities in the lower lobes posteriorly likely reflecting atelectasis. 2. Otherwise, no CT evidence for acute traumatic injury in the chest. Face CT 09/10/18 11:50 CONCLUSION: 1. Mandible appears to be subluxed anteriorly the mouth partially open. I don' t see a fracture to account for this. Clinical correlation suggested. Head CT 09/10/18 11:50 CONCLUSION: 1. Negative for acute process Lumbar Spine CT 09/10/18 11:50 CONCLUSION: 1. Negative for acute compression fracture. MRI would be more sensitive for such. 2. Degenerative disc disease worse at L4-5 without significant spinal stenosis. Thoracic Spine CT 09/10/18 11:50 CONCLUSION: 1. Negative for acute compression fracture, MRI be more sensitive for such. 2. No significant spinal stenosis. Wrist X-Ray 09/10/18 14:10 CONCLUSION: 1. Comminuted, impaction type fracture of the distal radial metaphysis with probable intra-articular extension. 2. There may be partial reduction of the fracture but there is still some dorsal angulation of the main fracture fragments. Physical Exam Vital signs: Vital Signs 09/10/18 11:54 09/10/18 12:25 09/10/18 14:13 Temperature Pulse Rate 62 60 Respiratory Rate 20 20 Blood Pressure 201/96 H 185/87 H Pulse Oximetry 100 99 97 09/10/18 16:02 09/10/18 19:04 09/10/18 19:50 Temperature 97.9 F 99 F Pulse Rate 60 65 66 Respiratory Rate 18 18 18 Blood Pressure 196/94 H 170/79 H 175/89 H Pulse Oximetry 97 96 97 09/10/18 20:00 09/10/18 23:35 09/11/18 04:00 Temperature 97.8 F 98.3 F Pulse Rate 69 63 Respiratory Rate 18 18 Blood Pressure 153/72 H 161/74 H Pulse Oximetry 97 97 95 09/11/18 05:05 09/11/18 08:00 Temperature 98.2 F Pulse Rate 59 L Respiratory Rate 16 Blood Pressure 156/77 H 170/88 H Pulse Oximetry 97 Intake & Output 09/10/18 09/11/18 09/11/18 18:59 06:59 18:59 Intake Total 0 / 0 Output Total 350 / 350 Balance -350 / -350 Weight 70.307 kg 70 kg Intake: Oral 0 / 0 Output: Urine 350 / 350 Other: Date of Last Bowel Movement 09/10/18 # Bowel Movements 0 Weight On Admission 70.307 kg Narrative: Per resident H&P. Significant for: In NAD, no resp distress, accompanied by his . External abrasions on right and left cheek as well as over her philtrum. Patient has approximately 2 cm linear laceration on the inside of his top lip. Does not appear to go all the way through his lip. RRR, S1 S2 CTAB Left arm in bandage, fingers well perfused and warm to the touch. Capillary refill less than 2 seconds. No cyanosis or edema. Able to wiggle left 2nd finger only. Sensation to light tough decreased in fingers. 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 Assessment and Plan - Assessment (1) Distal radius fracture, left Code(s): S52.502A - Unspecified fracture of the lower end of left radius, initial encounter for closed fracture Status: Acute Plan: To OR today by Dr Hairston for ORIF. Pain medication as ordered. Further orders / management by Dr Hairston. (2) Fall from scaffold Code(s): W12.XXXA - Fall on and from scaffolding, initial encounter Status: Acute Plan: This fall was a witnessed fall, reported to be mechanical due to an unstable ladder. At this time no concern for intoxication, hypoglycemia, seizure-like activity, or CVA. -See plan above -Blood alcohol level negative -UDS positive for opiates (was collected after patient received pain medications ) Imaging for trauma as stated below. -Chest x-ray: Otherwise negative -Pelvic x-ray pelvic ring grossly intact -Abdomen/pelvis CT no acute trauma in the abdomen or pelvis, mild hepatic steatosis. Small fat-containing left inguinal hernia. -Cervical spine CT negative for fracture -Chest CT mild groundglass opacities in the lower lobes posteriorly likely reflecting atelectasis, otherwise no CT evidence for acute traumatic injury to the chest -Face CT mandible appears to be subluxed anteriorly, the mouth partially open. No fracture to account for. -Head CT negative for acute process -Lumbar spine CT negative for acute compression fraction, degenerative disc at L4-L5 without significant spinal stenosis -Thoracic spine CT negative for spinal stenosis, negative for acute compression fracture -Wrist x-ray commuted impactions type fracture of the distal radial metaphysis with probable intra-articular extension. Partial reduction of the fracture was still some dorsal angulation of the fragments. (3) Elevated blood pressure reading Code(s): R03.0 - Elevated blood-pressure reading, without diagnosis of hypertension Status: Acute Plan: BP elevated during hospitalization. Reviewed this with patient and discussed the importance of monitoring blood pressure as an outpatient and of following up with PCP in [place]. (4) Hypokalemia Code(s): E87.6 - Hypokalemia Status: Resolved Plan: Patient with potassium of 3.0 on admission. Patient currently is symptomatic. -40 of potassium chloride p.o. ordered; repeat potassium normalized. - Assessment and Plan Discharge Planning: Anticipate discharge tomorrow, once pain is controlled. - Attending Attestation Patient seen, examined, and discussed with resident team. I certify that 2 midnight stay is warranted and anticipated. (1) Distal radius fracture, left Qualifiers: Encounter type: subsequent encounter Fracture type: closed Fracture healing : with routine healing (2) Fall from scaffold Qualifiers: Encounter type: subsequent encounter Qualified Code(s): W12.XXXD - Fall on and from scaffolding, subsequent encounter
--- NOTE | 2018-09-11 09:40 | P.CONOP ---
[facility] Orthopedics Consult Note - [facility] Consult date: 09/11/18 Consult reason: fracture Chief complaint: distal radius fracture Narrative: 58-year-old [place]-speaking male who presented to the ED as a trauma after a witnessed fall. 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 Patient reports falling directly onto his left arm. At the time patient felt excruciating pain. He denies any lightheadedness, dizziness, shaking-like behavior, chest pain or shortness of breath prior to falling. Patient denies any loss of consciousness or hitting his head after falling. 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 Patient reports that he has had one prior fall over 10 years ago that resulted no injury. Since getting to the ED patient reports increased numbness and lack of sensation in the arm. Review of Systems Denies fevers, chills, nausea, vomiting. Denies chest pain, cough, shortness of breath. Denies abdominal pain or change in urination. Denies back pain, weakness. Denies dizziness, blurry vision or throat pain. Reports left wrist pain and decreased strength in left fingers along with numbness and tingling PMFSH - History History Provided By: Patient - Medical History Medical History: Medical History (Last Reviewed 09/11/18 @ 09:02 by Sharmaine Salter) Seizure disorder - Tobacco History Second Hand Smoke Exposure: No Smoking Status: Never smoker - Alcohol History How Often Do You Have a Drink Containing Alcohol: Monthly or less - Substance Use History Substance History: No History of Abuse - Travel History Recent Travel in the [place] Within the Last 8 Weeks: No Recent Travel Out of the Country Within the Last 8 Weeks: No - Immunization History Tetanus Immunization: Unsure Hx Influenza Vaccine This Season: No Medications and Allergies Active Medications: Active Medications Acetaminophen (Tylenol) 650 mg PO Q4H PRN PRN Reason: Temp > 100.4 Hydrocodone Bitart/Acetaminophen ([place] 5/325) 1 tab PO Q4H PRN PRN Reason: PAIN SCALE 3 TO 5 Hydrocodone Bitart/Acetaminophen ([place] 7.5/325) 1 tab PO Q4H PRN PRN Reason: PAIN SCALE 6 TO 10 Last Admin: 09/10/18 20:32 Dose: 1 tab Al Hydroxide/Mg Hydroxide (Milk Of Magnesia Liq) 30 ml PO Q12H PRN PRN Reason: Mild Constipation Bisacodyl (Dulcolax Supp) 10 mg RECTAL DAILY PRN PRN Reason: SEVERE CONSITIPATION Enalapril Maleate (Vasotec) 10 mg PO ONCE PRN PRN Reason: HYPERTENSION Lactated Ringer's (Lr 1000 Ml Inj) 1,000 mls @ 30 mls/hr IV.CONT .Q24H ONE Stop: 09/12/18 04:59 Last Admin: 09/11/18 05:07 Dose: 30 mls/hr Sodium Chloride (Ns Inj) 500 mls @ 30 mls/hr IV.CONT .[id number] ONE Stop: 09/11/18 21:39 Last Admin: 09/11/18 05:08 Dose: Not Given Ibuprofen (Motrin) 400 mg PO Q6HR PRN PRN Reason: PAIN SCALE 1 TO 2 Lactulose (Lactulose Liq) 30 ml PO DAILY PRN PRN Reason: SEVERE CONSITIPATION Morphine Sulfate (Morphine Inj) 2 mg IV.PUSH Q3H PRN PRN Reason: BREAKTHROUGH PAIN Last Admin: 09/11/18 08:32 Dose: 2 mg Naloxone HCl (Narcan Inj) 0.4 mg IV.PUSH UNSCH PRN PRN Reason: SEE LABEL COMMENTS Ondansetron HCl (Zofran Inj) 4 mg IV.PUSH Q6H PRN PRN Reason: NAUSEA OR VOMITING Senna/Docusate Sodium (Denisse-Colace) 1 tab PO BID [facility] Last Admin: 09/11/18 08:01 Dose: Not Given Sennosides (Senokot) 17.2 mg PO Q12H PRN PRN Reason: Moderate Constipation Sodium Chloride (Ns Flush) 2 ml IV.FLUSH BID [facility] Last Admin: 09/11/18 08:01 Dose: Not Given Sodium Chloride (Ns Flush) 2 ml IV.FLUSH PRN PRN PRN Reason: FLUSH AFTER USING IV ACCESS Allergies Allergy/AdvReac Type Severity Reaction Status Date / Time No Known Allergies Allergy Verified 09/10/18 12:42 Home Medications Medication Instructions Recorded Confirmed Type No Known Home Medications 09/10/18 09/10/18 History Exam Vital signs: Vital Signs 09/10/18 11:54 09/10/18 12:25 09/10/18 14:13 Temperature Pulse Rate 62 60 Respiratory Rate 20 20 Blood Pressure 201/96 H 185/87 H Pulse Oximetry 100 99 97 09/10/18 16:02 09/10/18 19:04 09/10/18 19:50 Temperature 97.9 F 99 F Pulse Rate 60 65 66 Respiratory Rate 18 18 18 Blood Pressure 196/94 H 170/79 H 175/89 H Pulse Oximetry 97 96 97 09/10/18 20:00 09/10/18 23:35 09/11/18 04:00 Temperature 97.8 F 98.3 F Pulse Rate 69 63 Respiratory Rate 18 18 Blood Pressure 153/72 H 161/74 H Pulse Oximetry 97 97 95 09/11/18 05:05 09/11/18 08:00 Temperature 98.2 F Pulse Rate 59 L Respiratory Rate 16 Blood Pressure 156/77 H 170/88 H Pulse Oximetry 97 Intake & Output 09/10/18 09/11/18 09/11/18 18:59 06:59 18:59 Intake Total 0 / 0 Output Total 350 / 350 Balance -350 / -350 Weight 70.307 kg 70 kg Intake: Oral 0 / 0 Output: Urine 350 / 350 Other: Date of Last Bowel Movement 09/10/18 # Bowel Movements 0 Weight On Admission 70.307 kg Narrative: Awake, alert, no acute distress Normocephalic Pupils equal No JVD Moist mucous membranes Nonlabored respirations Soft nontender abdomen Regular rate Right upper extremity: No tenderness to palpation or visible deformities. Full active range of motion and strength throughout. Sensation intact. Brisk cap refill. Left upper extremity: Splint in place over forearm and wrist. Patient is able to wiggle index finger but has difficulty with moving thumb or other fingers. Patient reports decreased sensation over fingers. Brisk cap refill. No tenderness over shoulder. Right lower extremity: No tenderness to palpation or visible deformities. Full active range of motion and strength throughout. Sensation intact. Brisk cap refill. Left lower extremity:No tenderness to palpation or visible deformities. Full active range of motion and strength throughout. Sensation intact. Brisk cap refill. No rash Normal affect Results - Labs Result Diagrams: 09/11/18 04:47 09/11/18 04:47 Labs: Laboratory Results - last 24 hr 02/11/19 02/11/19 02/11/19 11:45 11:45 11:45 WBC 7.8 RBC 4.75 Hgb 14.3 POC Hgb (Calc) 13.6 Hct 40.4 POC Hct 40.0 MCV 85.1 MCH 30.1 MCHC 35.4 RDW 13.8 Plt Count 228 MPV 7.4 Neut % (Auto) 52.3 Lymph % (Auto) 36.8 [place] % (Auto) 8.3 H Eos % (Auto) 1.6 Baso % (Auto) 1.0 Neut # (Auto) 4.0 Lymph # (Auto) 2.9 [place] # (Auto) 0.6 Eos # (Auto) 0.1 Baso # (Auto) 0.1 WBC Differential . Differential Comment Auto diff final PT 9.8 INR 1.0 APTT 21.8 L POC Sodium 142 Sodium POC Potassium 3.0 L Potassium POC Chloride 106 Chloride Carbon Dioxide Anion Gap POC BUN 10 BUN Creatinine POC Creatinine 0.8 Estimated GFR POC Glucose 121 H Random Glucose Calcium Urine Opiates Screen Ur Barbiturates Screen Ur Amphetamines Screen U Benzodiazepines Scrn Urine Cocaine Screen U Cannabinoids Screen Serum Alcohol Blood Type Antibody Screen 09/10/18 09/10/18 09/11/18 11:45 11:45 00:20 WBC RBC Hgb POC Hgb (Calc) Hct POC Hct MCV MCH MCHC RDW Plt Count MPV Neut % (Auto) Lymph % (Auto) [place] % (Auto) Eos % (Auto) Baso % (Auto) Neut # (Auto) Lymph # (Auto) [place] # (Auto) Eos # (Auto) Baso # (Auto) WBC Differential Differential Comment PT INR APTT POC Sodium Sodium POC Potassium Potassium POC Chloride Chloride Carbon Dioxide Anion Gap POC BUN BUN Creatinine POC Creatinine Estimated GFR POC Glucose Random Glucose Calcium Urine Opiates Screen Pos H Ur Barbiturates Screen Neg Ur Amphetamines Screen Neg U Benzodiazepines Scrn Neg Urine Cocaine Screen Neg U Cannabinoids Screen Neg Serum Alcohol Less than 3 Blood Type A Positive Antibody Screen Negative 09/11/18 09/11/18 09/11/18 04:47 04:47 04:47 WBC 8.7 RBC 4.59 Hgb 13.7 POC Hgb (Calc) Hct 39.0 POC Hct MCV 85.0 MCH 29.8 MCHC 35.1 RDW 13.7 Plt Count 211 MPV 7.4 Neut % (Auto) 69.2 Lymph % (Auto) 19.2 [place] % (Auto) 8.7 H Eos % (Auto) 2.2 Baso % (Auto) 0.7 Neut # (Auto) 6.0 Lymph # (Auto) 1.7 [place] # (Auto) 0.8 Eos # (Auto) 0.2 Baso # (Auto) 0.1 WBC Differential . Differential Comment Auto diff final PT 10.0 INR 1.0 APTT POC Sodium Sodium 140 POC Potassium Potassium 3.8 POC Chloride Chloride 107 Carbon Dioxide 25.4 Anion Gap 8 POC BUN BUN 10 Creatinine 0.79 POC Creatinine Estimated GFR 84 L POC Glucose Random Glucose 94 Calcium 8.3 L Urine Opiates Screen Ur Barbiturates Screen Ur Amphetamines Screen U Benzodiazepines Scrn Urine Cocaine Screen U Cannabinoids Screen Serum Alcohol Blood Type Antibody Screen - Diagnostic results Imaging: Impressions Wrist X-Ray 09/10/18 00:00 CONCLUSION: Comminuted distal radial fracture with dorsal dislocation of the carpus. Chest X-Ray 09/10/18 11:42 CONCLUSION: Artifact from backboard otherwise negative Pelvis X-Ray 09/10/18 11:42 CONCLUSION: The bony pelvic ring is grossly intact. Abdomen/Pelvis CT 09/10/18 11:50 CONCLUSION: 1. No acute traumatic CT abnormality in the abdomen or pelvis. 2. Mildly decreased hepatic attenuation likely reflecting mild hepatic steatosis. 3. Small fat-containing left inguinal hernia. Cervical Spine CT 09/10/18 11:50 CONCLUSION: 1. Negative for fracture Chest CT 09/10/18 11:50 CONCLUSION: 1. Mild groundglass opacities in the lower lobes posteriorly likely reflecting atelectasis. 2. Otherwise, no CT evidence for acute traumatic injury in the chest. Face CT 09/10/18 11:50 CONCLUSION: 1. Mandible appears to be subluxed anteriorly the mouth partially open. I don' t see a fracture to account for this. Clinical correlation suggested. Head CT 09/10/18 11:50 CONCLUSION: 1. Negative for acute process Lumbar Spine CT 09/10/18 11:50 CONCLUSION: 1. Negative for acute compression fracture. MRI would be more sensitive for such. 2. Degenerative disc disease worse at L4-5 without significant spinal stenosis. Thoracic Spine CT 09/10/18 11:50 CONCLUSION: 1. Negative for acute compression fracture, MRI be more sensitive for such. 2. No significant spinal stenosis. Wrist X-Ray 09/10/18 14:10 CONCLUSION: 1. Comminuted, impaction type fracture of the distal radial metaphysis with probable intra-articular extension. 2. There may be partial reduction of the fracture but there is still some dorsal angulation of the main fracture fragments. Assessment and Plan - Assessment and Plan 58-year-old gentleman with closed left distal radius fracture, intra-articular and displaced Radiographs reviewed by myself and with the patient. I discussed options of management including nonoperative versus operative intervention. Given the intra-articular nature and displacement of his fracture, I recommended operative intervention in the form of open reduction internal fixation of his left wrist. Risks of surgery including but not limited to: Infection, nonunion or malunion, hardware malposition or failure, neurovascular injury, persistent wrist pain and/or stiffness, possible need for further surgery, and other unforeseen complications. At this time patient is consented to the above- mentioned procedure. Patient has been n.p.o. since midnight with plan for surgery today. I did discuss postoperative course with the patient. I explained to the patient that these fractures do take at least 6-8 weeks to heal, and he will likely also be limited in his lifting, pushing and pulling for up to 12 weeks. He will be kept in a splint and/or cast for likely at least 6 weeks. Postoperatively, he may be able to be discharged later today pending his pain control.
--- NOTE | 2018-09-11 12:31 | ECG ---
Date Performed: 09/10/2018 Time Performed: 21:29:45 PTAGE: 89 years EKG: SINUS BRADYCARDIA MODERATE INTRAVENTRICULAR CONDUCTION DELAY BORDERLINE ECG INTERPRETATION BASED ON A DEFAULT AGE OF 40 YEARS NO PREVIOUS TRACING DOCTOR: Janki Winter Interpretating Date/Time 09/11/2018 12:27:06
[2018-09-11] MEDS ORDERED: Bupivacaine/Epinephrine Inj 0.25% 50 ML Vial ONE ×2 (12:51→13:29)
[2018-09-11] MEDS ORDERED: Ketorolac Inj 30 MG/ML (IVP) Vial IV.PUSH ONE (13:07)
[2018-09-11] MEDS ORDERED: Neostigmine Inj 5 MG/5 ML Syringe IV.PUSH ONE (13:07)
[2018-09-11] MEDS ORDERED: Glycopyrrolate Inj 1 MG/5 ML Syringe IV.PUSH ONE (13:07)
[2018-09-11] MEDS ORDERED: Lidocaine PF 1% Inj 5 ML Syringe OTHER ONE (13:07)
[2018-09-11] MEDS ORDERED: hydrALAZINE HCl Inj 20 MG/ML Vial IV.PUSH ONE (13:07)
[2018-09-11] MEDS ORDERED: Post-op Orders (for Pharmacy) OTHER STA (14:50)
--- NOTE | 2018-09-11 14:56 | P.BOP ---
Date of procedure: 09/11/18 Procedure: Open reduction internal fixation left distal radius fracture, intra-articular 3- part Implants: ITS Anesthesia: GETA Surgeon: Vikki Hairston MD Estimated blood loss (mL): 15 Pathology: none sent Condition: stable Disposition: PACU
[2018-09-11] MEDS ORDERED: fentaNYL Citrate Inj 100 MCG/2 ML Ampul ONE (15:00)
[2018-09-11] MEDS ORDERED: *morphine SULFATE 4 MG/ML PERIprocedure ONLY ONE (15:10)
[2018-09-11] MEDS ORDERED: *Meperidine Inj 25 MG/ML Vial PERIprocedural Use ONLY ONE (15:24)
[2018-09-11] MEDS ORDERED: *Ondansetron Inj 4 MG/2 ML Vial PERIprocedural Use ONLY ONE (15:24)
--- NOTE | 2018-09-11 15:26 | XR ---
EXAM DATE: 09/11/2018 2:35 PM EST AGE/SEX: 58 years / Male INDICATIONS: ORIF left wrist. CLINICAL DATA: This is the patient's initial encounter. Patient reports that signs and symptoms have been present for 1 day and indicates a pain score of Nonresponsive. MEDICAL/SURGICAL HISTORY: Non-responsive. Non-responsive. COMPARISON: No prior exams available for comparison. FINDINGS: 2 views of the wrist acquired digitally with C-arm after placement of internal fixation hardware. CONCLUSION: Intraoperative images. Electronically signed by: Gabo Machuca MD Board Certified Radiologist 09/11/2018 3:25 PM EST
[2018-09-11] MEDS: ceFAZolin Inj 1 GM in Sodium Chlor 0.9% Inj 100 ML IV.SIG SCH (21:21)
[2018-09-12 04:33] VITALS: TEMP 98.3
[2018-09-12] MEDS: ceFAZolin Inj 1 GM in Sodium Chlor 0.9% Inj 100 ML IV.SIG SCH (06:30)
--- NOTE | 2018-09-12 07:34 | P.PNOP ---
Subjective Interval history: Resting comfortably. C/o pain over left wrist Physical Exam Vital signs: Vital Signs 09/11/18 08:00 09/11/18 10:00 09/11/18 14:45 Temperature 98.2 F 97.8 F Pulse Rate 59 L 83 Respiratory Rate 16 19 Blood Pressure 170/88 H 180/97 H Pulse Oximetry 97 97 95 09/11/18 15:00 09/11/18 15:15 09/11/18 15:30 Temperature 98.5 F Pulse Rate 82 84 109 H Respiratory Rate 12 11 L 11 L Blood Pressure 177/94 H 164/91 H 132/73 Pulse Oximetry 100 100 95 09/11/18 16:00 09/11/18 16:14 09/11/18 19:40 Temperature 97.6 F 98.6 F Pulse Rate 103 H 87 Respiratory Rate 16 14 18 Blood Pressure 130/62 159/84 H Pulse Oximetry 97 99 09/11/18 20:00 09/11/18 21:50 09/12/18 00:00 Temperature 101.4 F H Pulse Rate 98 H Respiratory Rate 18 Blood Pressure 128/74 Pulse Oximetry 99 98 97 09/12/18 04:00 Temperature 98.3 F Pulse Rate 76 Respiratory Rate 18 Blood Pressure 136/86 Pulse Oximetry 98 Intake & Output 09/11/18 09/12/18 09/12/18 18:59 06:59 18:59 Intake Total 1100 / 1100 100 / 100 Output Total 15 / 15 Balance 1085 / 1085 100 / 100 Weight 74.9 kg Intake: IV 100 / 100 Ancef Inj 1 GM In NS Inj 100 ML 100 / 100 @ 100 mls/hr IV.SIG Q8H MAURO Rx #:[id number] Anesthesia Amount 1100 / 1100 Output: Estimated Blood Loss Other: Date of Last Bowel Movement 09/10/18 Narrative: Awake, alert, NAD LUE: splint in place. Wiggles fingers. BCR Results - Labs CBC & Chem 7: 09/11/18 04:47 09/11/18 04:47 - Imaging Impressions Wrist X-Ray 09/11/18 00:00 CONCLUSION: Intraoperative images. Assessment and Plan - Assessment and Plan 58yo M, POD#1 s/p ORIF L DR fracture 1. NWB LUE in splint. Splint to remain in place until follow-up. Splint to remain clean and dry. 2. Encouraged finger ROM 3. Ok for discharge from ortho standpoint. Patient plans to follow-up with orthopedic surgeon at home in [place]. I discussed with the patient that he should follow-up in 2 weeks.
[2018-09-12 08:13] VITALS: BP 133/76; PULSE 62; RESP 16; O2SAT 96
--- NOTE | 2018-09-12 09:16 | P.PNFP ---
Addendum entered and electronically signed by Zunilda Bravo MD, R2 11:35: E force reviewed with Dr. Rees. 09/12/17 Original Note: Subjective Interval history: Examined at bedside this morning. He reports headache and fever overnight. Patient had a T-max of 101.4F. This morning he reports his headache has improved. He is no longer febrile, current temperature is 98.3F. Patient denies any chest pain, shortness of breath, nausea, vomiting, dysuria or abdominal pain. He had bowel movement but is passing gas. Pain is well controlled. <Zunilda Zamudio - 09/12/18 10:33> Results - Labs Result diagrams: 09/11/18 04:47 09/11/18 04:47 <Ofelia Rees - 09/12/18 21:11> - Imaging Impressions Chest X-Ray 09/12/18 00:00 CONCLUSION: Under aerated otherwise negative. I do not see a source of fever. <Ofelia Rees - 09/12/18 21:11> Impressions Wrist X-Ray 09/11/18 00:00 CONCLUSION: Intraoperative images. <Zunilda Zamudio - 09/12/18 09:15> Physical Exam Vital signs: Vital Signs 09/11/18 21:50 09/12/18 00:00 09/12/18 04:00 Temperature 101.4 F H 98.3 F Pulse Rate 98 H 76 Respiratory Rate 18 18 Blood Pressure 128/74 136/86 Pulse Oximetry 98 97 98 09/12/18 08:00 Temperature 98.3 F Pulse Rate 62 Respiratory Rate 16 Blood Pressure 133/76 Pulse Oximetry 96 Intake & Output 09/12/18 09/12/18 09/13/18 06:59 18:59 06:59 Intake Total 340 / 340 100 / 100 Balance 340 / 340 100 / 100 Weight 74.9 kg Intake: IV 100 / 100 100 / 100 Ancef Inj 1 GM In NS Inj 100 ML 100 / 100 100 / 100 @ 100 mls/hr IV.SIG Q8H [facility]O Rx #:[id number] Oral 240 / 240 Other: # Voids 2 Date of Last Bowel Movement 09/10/18 # Bowel Movements 0 <Ofelia Rees - 09/12/18 21:11> Vital Signs 09/11/18 10:00 09/11/18 14:45 09/11/18 15:00 Temperature 97.8 F Pulse Rate 83 82 Respiratory Rate 19 12 Blood Pressure 180/97 H 177/94 H Pulse Oximetry 97 95 100 09/11/18 15:15 09/11/18 15:30 09/11/18 16:00 Temperature 98.5 F 97.6 F Pulse Rate 84 109 H 103 H Respiratory Rate 11 L 11 L 16 Blood Pressure 164/91 H 132/73 130/62 Pulse Oximetry 100 95 97 09/11/18 16:14 09/11/18 19:40 09/11/18 20:00 Temperature 98.6 F Pulse Rate 87 Respiratory Rate 14 18 Blood Pressure 159/84 H Pulse Oximetry 99 99 09/11/18 21:50 09/12/18 00:00 09/12/18 04:00 Temperature 101.4 F H 98.3 F Pulse Rate 98 H 76 Respiratory Rate 18 18 Blood Pressure 128/74 136/86 Pulse Oximetry 98 97 98 09/12/18 08:00 Temperature 98.3 F Pulse Rate 62 Respiratory Rate 16 Blood Pressure 133/76 Pulse Oximetry 96 Intake & Output 09/11/18 09/12/18 09/12/18 18:59 06:59 18:59 Intake Total 1100 / 1100 340 / 340 Output Total Balance 1085 / 1085 340 / 340 Weight 74.9 kg Intake: IV 100 / 100 Ancef Inj 1 GM In NS Inj 100 ML 100 / 100 @ 100 mls/hr IV.SIG Q8H [facility] Rx #:[id number] Oral 240 / 240 Anesthesia Amount 1100 / 1100 Output: Estimated Blood Loss Other: # Voids 2 Date of Last Bowel Movement 09/10/18 # Bowel Movements 0 <Karla R2Zunilda D - 09/12/18 09:15> Narrative: GENERAL: Well-nourished, well-developed patient, sitting in chair, no acute distress SKIN: Warm and dry. HEAD: Normocephalic. EYES: No scleral icterus. No injection or drainage. NECK: Supple, trachea midline. CARDIOVASCULAR: Regular rate and rhythm without murmurs, gallops, or rubs. RESPIRATORY: Breath sounds equal bilaterally. No accessory muscle use. Mild atelectasis at lower bases bilaterally. GASTROINTESTINAL: Abdomen soft, non-tender, nondistended. EXTREMITIES: Left arm in bandage, Patient able to move all fingers of Left hand , normal sensation in fingers 2-5, diminished sensation of Left thumb, but improved from admission, good cap refill on left hand, well perfused. NEUROLOGICAL: Awake, alert, and oriented x 3. Non-focal. <Karla Zunilda Bravo D - 09/12/18 10:33> Assessment and Plan - Assessment (1) Distal radius fracture, left Code(s): S52.502A - Unspecified fracture of the lower end of left radius, initial encounter for closed fracture Status: Acute (2) Fall from scaffold Code(s): W12.XXXA - Fall on and from scaffolding, initial encounter Status: Acute (3) Fever Code(s): R50.9 - Fever, unspecified Status: Acute <Ofelia Rees - 09/12/18 21:11> (1) Distal radius fracture, left Code(s): S52.502A - Unspecified fracture of the lower end of left radius, initial encounter for closed fracture Status: Acute Plan: 58-year-old Indonesian-speaking male who presented to the ED as a trauma after a witnessed fall. s/p ORIF left distal radius fracture left distal radial fracture (09/11) by Dr Hairston Pain well controlled patient cleared for discharge from ortho stand point advised to f/u in 2 wks with orthopedic surgeon at [facility] (2) Fall from scaffold Code(s): W12.XXXA - Fall on and from scaffolding, initial encounter Status: Acute Plan: This fall was a witnessed fall, reported to be mechanical due to an unstable ladder. At admission no concern for intoxication, hypoglycemia, seizure-like activity, or CVA. -See plan above -Blood alcohol level negative -UDS positive for opiates (was collected after patient received pain medications ) Imaging for trauma as stated below. -Chest x-ray: Otherwise negative -Pelvic x-ray pelvic ring grossly intact -Abdomen/pelvis CT no acute trauma in the abdomen or pelvis, mild hepatic steatosis. Small fat-containing left inguinal hernia. -Cervical spine CT negative for fracture -Chest CT mild groundglass opacities in the lower lobes posteriorly likely reflecting atelectasis, otherwise no CT evidence for acute traumatic injury to the chest -Face CT mandible appears to be subluxed anteriorly, the mouth partially open. No fracture to account for. -Head CT negative for acute process -Lumbar spine CT negative for acute compression fraction, degenerative disc at L4-L5 without significant spinal stenosis -Thoracic spine CT negative for spinal stenosis, negative for acute compression fracture -Wrist x-ray commuted impactions type fracture of the distal radial metaphysis with probable intra-articular extension. Partial reduction of the fracture was still some dorsal angulation of the fragments. (3) Fever Code(s): R50.9 - Fever, unspecified Status: Acute Plan: Patient spiked a fever of 101. 4F overnight associated with MARLEY This am: afebrile, VS WNL, mild MARLEY, mild atelectasis at lower bases on lung exam incentive spirometry ordered f/u CXR <Zunilda Zamudio - 09/12/18 10:24> - Attending Attestation Patient seen and examined, discussed with resident team. I agree with assessment and management as documented and discussed with me. Pt reports pain is controlled. He reports numbness is improved. He feels ready for discharge home today. showed me a list of local ([place]) orthopedists; she was encouraged to contact their offices [place]. Medical records request/release to be done today; images to be copied to CD - discussed importance of this with tracer clerk. <Ofelia Rees - 09/12/18 21:11> <Zunilda Zamudio - Last Filed: 09/12/18 10:24> (1) Distal radius fracture, left Qualifiers: Encounter type: subsequent encounter Fracture type: closed Fracture healing : with routine healing (2) Fall from scaffold Qualifiers: Encounter type: subsequent encounter Qualified Code(s): W12.XXXD - Fall on and from scaffolding, subsequent encounter <Tammy Reese - Last Filed: 09/12/18 21:11> (1) Distal radius fracture, left Qualifiers: Encounter type: subsequent encounter Fracture type: closed Fracture healing : with routine healing (2) Fall from scaffold Qualifiers: Encounter type: subsequent encounter Qualified Code(s): W12.XXXD - Fall on and from scaffolding, subsequent encounter <Zunilda Zamudio D - Last Filed: 09/12/18 10:24> (1) Distal radius fracture, left Qualifiers: Encounter type: subsequent encounter Fracture type: closed Fracture healing : with routine healing (2) Fall from scaffold Qualifiers: Encounter type: subsequent encounter Qualified Code(s): W12.XXXD - Fall on and from scaffolding, subsequent encounter <CabreraOfelia - Last Filed: 09/12/18 21:11> (1) Distal radius fracture, left Qualifiers: Encounter type: subsequent encounter Fracture type: closed Fracture healing : with routine healing (2) Fall from scaffold Qualifiers: Encounter type: subsequent encounter Qualified Code(s): W12.XXXD - Fall on and from scaffolding, subsequent encounter
[2018-09-12] MEDS: Senna/Docusate Sodium 8.6/50 MG Tablet PO SCH (09:32)
--- NOTE | 2018-09-12 11:29 | XR ---
EXAM DATE: 09/12/2018 11:17 AM EST AGE/SEX: 58 years / Male INDICATIONS: . Fever. CLINICAL DATA: This is the patient's subsequent encounter. Patient reports that signs and symptoms h ave been present for 1 day and indicates a pain score of 0/10. MEDICAL/SURGICAL HISTORY: None. None. COMPARISON: [facility] – [place], CHEST 1V SINGLE AP, 09/10/2018. . FINDINGS: The lungs are under aerated. The heart is minimally enlarged. Pulmonary vascularity is normal. There is no evidence consolidation, pleural effusion or pneumothorax. CONCLUSION: Under aerated otherwise negative. I do not see a source of fever. Electronically signed by: Jani Toney MD Board Certified Radiologist 09/12/2018 11:28 AM EST
== END 2018-09-12 12:41 | disposition home or self-care (01) | DRG 511 ==
LOC: NEPI 11:40 → NEDA 15:41 → EDBD 15:41 → N06 17:29
PROVIDERS: ADMIT Family Medicine; ATTEND Family Medicine
CPT/HCPCS: 29125; 70450; 70486; 71010; 71020; 71045; 71046; 71260; 72125; 72129; 72132; 72170; 73100; 74177; 76000; 80048; 80307; 85025; 85610; 85730; 86850; 86900; 86901; 90774; 90775; 90784; 93005; 94150; 96374; 96375; 97110; 97116; 97161; 97166; 97535; 99285; 99291; C1713; C1776; C8952; G0390; J0360; J0690; J1580; J1885; J2175; J2270; J2405; J2704; J2710; J3010; J3370; J7120; L6380; Q9967